=== PATIENT | male | born 1995 | race Caucasian/White ===

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

== ENCOUNTER 2023-10-15 13:37 | Emergency (ER) | payer BC, OTHER ==
[2023-10-15 13:51] VITALS: BP 129/80; PULSE 72; RESP 72; TEMP 98; BMI 29.7
== END 2023-10-15 15:40 | disposition home or self-care (01) ==
LOC: JER 13:37
DX: R05.9 Cough, unspecified (principal); J06.9 Acute upper respiratory infection, unspecified; B97.89 Other viral agents as the cause of diseases classified elsewhere; R07.9 Chest pain, unspecified; R09.81 Nasal congestion
CPT/HCPCS: 71046-TC-FY; 93005; 93010; 99284-25